=== PATIENT | male | born 1995 | race Caucasian/White ===

== ENCOUNTER 2018-07-11 13:26 | Emergency (ER) | payer OTHER ==
[2018-07-11 14:41] LABS: BASO # 0.1 10^3/uL (0.0-0.2); BASO % 0.5 % (0.0-1.0); EOS # 0.4 10^3/uL (0.0-0.50); EOS % 4.3 % (0.0-3.0); HEMATOCRIT 48.6 % (42.0-52.0); HEMOGLOBIN 15.7 g/dl (13.5-17.5); IMMATURE GRANULOCYTE % 0.3 % (0-3.0); LYMPH # 2.5 10^3/uL (1.5-6.5); LYMPH % 26.4 % (24.0-44.0); MEAN CORPUSCULAR HEMOGLOBIN 29.1 pg (27.0-33.0); MEAN CORPUSCULAR HGB CONC 32.3 g/dl (32.0-36.5); MEAN CORPUSCULAR VOLUME 90.2 fl (80.0-96.0); MONO # 0.7 10^3/uL (0.0-0.8); MONO % 7.8 % (0.0-5.0); NEUTROPHILS # 5.7 10^3/uL (1.8-7.7); NEUTROPHILS % 60.7 % (36.0-66.0); PLATELET COUNT, AUTOMATED 220 10^3/uL (150-450); RED BLOOD COUNT 5.39 10^6/uL (4.30-6.10); RED CELL DISTRIBUTION WIDTH 13.5 % (11.5-14.5); WHITE BLOOD COUNT 9.3 10^3/uL (4.0-10.0)
[2018-07-11 14:57] LABS: ANION GAP 4 MEQ/L (8-16); BLOOD UREA NITROGEN 13 MG/DL (7-18); CALCIUM LEVEL 9.1 MG/DL (8.5-10.1); CARBON DIOXIDE LEVEL 32 MEQ/L (21-32); CHLORIDE LEVEL 103 MEQ/L (98-107); CREATININE FOR GFR 1.12 MG/DL (0.70-1.30); GLOMERULAR FILTRATION RATE > 60.0 (>60); GLUCOSE, FASTING 90 MG/DL (70-100); POTASSIUM SERUM 4.4 MEQ/L (3.5-5.1); SODIUM LEVEL 139 MEQ/L (136-145)
[2018-07-11 15:05] LABS: CONTROL LINE MONO INT CTR LINE PRESENT; MONO SCRN NEGATIVE (NEGATIVE)
[2018-07-11] MEDS ORDERED: ISOVUE-370 76% 100ML VIAL (Q9967) As Ordered (15:09)
[2018-07-11] MEDS: dexameTHASONE 20 MG/5 ML VIAL (J1100) IV (16:23)
[2018-07-11] MEDS: AUGMENTIN 875 MG TAB PO (16:23)
== END 2018-07-11 16:36 | disposition home or self-care (01) ==
LOC: M ED 13:26
DX: J03.90 Acute tonsillitis, unspecified (principal); F17.210 Nicotine dependence, cigarettes, uncomplicated
CPT/HCPCS: J1100

== ENCOUNTER 2019-03-24 11:22 | Emergency (ER) | payer OTHER ==
[~2019-03-24] VITALS: Ht 175.3 cm; Wt 68.0 kg
[~2019-03-24 11:22] MED LIST: AUGM875T28 PO; MAGICMW MT; TESS100C PO
[2019-03-24 11:23] VITALS: BP 110/55
[2019-03-24] MEDS ORDERED: OXYC1TAB23 (11:35)
[2019-03-24] MEDS ORDERED: PERI12LIQ (11:35)
[2019-03-24] MEDS ORDERED: METH4PACK (11:35)
[2019-03-24] MEDS ORDERED: IBUP-1022 (11:35)
[2019-03-24] MEDS ORDERED: PERC5TAB12 PO (12:01)
== END 2019-03-24 12:11 | disposition home or self-care (01) ==
LOC: M ED 11:22
DX: G89.18 Other acute postprocedural pain (principal); Z98.818 Other dental procedure status; Z72.0 Tobacco use